=== PATIENT | male | born 1995 | race Two or more races ===

== ENCOUNTER 2023-07-03 15:05 | Emergency (ER) | payer BC ==
[~2023-07-03] VITALS: Ht 177.8 cm; Wt 76.1 kg
[2023-07-03 15:30] VITALS: PULSE 66; RESP 14; O2SAT 98
[2023-07-03] MEDS ORDERED: KETOROLAC TROMETH 60MG/2ML VIAL IM ONE (15:30)
[2023-07-03] MEDS ORDERED: KETOROLAC TROMETH 30 MG/ML 1ML VIAL IV ONE (16:00)
[2023-07-03] MEDS ORDERED: MORPHINE SULFATE 4 MG/ML SYR/VIAL IV ONE (16:45)
[2023-07-03] MEDS ORDERED: ONDANSETRON HCL 4 MG/2 ML VIAL IV ONE (16:45)
[2023-07-03] MEDS ORDERED: ZOFR4T PO ×3 (17:54→18:18)
[2023-07-03] MEDS ORDERED: HYDR-4902 PO ×3 (17:54→18:18)
[2023-07-03] MEDS ORDERED: NAPR-1334 PO ×3 (17:54→18:18)
[2023-07-03 18:30] VITALS: BP 131/79; PULSE 64; RESP 15; O2SAT 95
== END 2023-07-03 19:07 | disposition home or self-care (01) ==
LOC: ER 15:05
DX: S42.001A Fracture of unspecified part of right clavicle, initial encounter for closed fracture (principal); Z98.890 Other specified postprocedural states; V87.8XXA Person injured in other specified noncollision transport accidents involving motor vehicle (traffic), initial encounter; Y93.55 Activity, bike riding; Y92.89 Other specified places as the place of occurrence of the external cause; Y99.8 Other external cause status
CPT/HCPCS: 71046; 71250; 73030; 96374; 96375; 99285; J1885; J2270; J2405

== ENCOUNTER 2023-07-06 09:51 | Emergency (ER) | payer BC ==
[~2023-07-06] VITALS: Ht 177.8 cm; Wt 77.0 kg
[~2023-07-06 09:51] MED LIST changes: -IBU600T PO
[2023-07-06 10:30] LABS: Basophils # (auto) 0 10 ^3/uL (0-0.2); Basophils % (auto) 0.4 % (0.0-2.0); Eosinophils # (auto) 0.1 10 ^3/uL (0-0.8); Eosinophils % (auto) 1.2 % (0.0-7.0); Hematocrit 43.9 % (41.0-53.0); Hemoglobin 14.7 g/dL (13.5-17.5); Lymphocytes # (auto) 1.5 10 ^3/uL (0.4-5.4); Lymphocytes % (auto) 18.5 % (10.0-50.0); Mean Corpuscular Hemoglobin 28.9 pg (28.0-32.0); Mean Corpuscular Hgb Conc. 33.4 g/dL (32.0-36.0); Mean Corpuscular Volume 86.6 fL (80.0-100.0); Monocytes % (auto) 11.9 % (0.0-12.0); Neutrophils # (auto) 5.6 10 ^3/uL (1.6-8.6); Red Blood Cells 5.08 10^6/uL (4.5-5.90); Red Cell Distribution Width 13.2 % (11.8-14.3); White Blood Cell 8.3 10^3/uL (4.4-10.8)
[2023-07-06] MEDS: HYDROcodone-ACET 10/325MG TAB PO ONE (11:27)
[2023-07-06] MEDS ORDERED: IBU600T PO (12:05)
[2023-07-06] MEDS ORDERED: HYDR-4902 PO (12:05)
[2023-07-06 12:30] VITALS: BP 138/89; PULSE 98; RESP 19; TEMP 97.5; O2SAT 98
== END 2023-07-06 12:06 | disposition home or self-care (01) ==
LOC: ER 09:51
DX: S42.001D Fracture of unspecified part of right clavicle, subsequent encounter for fracture with routine healing (principal); X58.XXXD Exposure to other specified factors, subsequent encounter
CPT/HCPCS: 36415; 71045; 83880; 85025; 85379

== ENCOUNTER → 2023-07-06 | Outpatient (CLI) | payer BC ==
[~2023-07-06] MED LIST: HYDR-4902 PO; IBU600T PO; NAPR-1334 PO; ZOFR4T PO
[2023-07-06 12:03] LABS: Basophils # (auto) 0 10 ^3/uL (0-0.2); Basophils % (auto) 0.4 % (0.0-2.0); Eosinophils # (auto) 0 10 ^3/uL (0-0.8); Eosinophils % (auto) 0.5 % (0.0-7.0); Hematocrit 43.8 % (41.0-53.0); Hemoglobin 14.9 g/dL (13.5-17.5); Lymphocytes # (auto) 1.4 10 ^3/uL (0.4-5.4); Lymphocytes % (auto) 12.6 % (10.0-50.0); Mean Corpuscular Hemoglobin 29.1 pg (28.0-32.0); Mean Corpuscular Volume 85.5 fL (80.0-100.0); Monocytes # (auto) 1.1 10 ^3/uL (0-1.3); Monocytes % (auto) 10.7 % (0.0-12.0); Neutrophils # (auto) 8.1 10 ^3/uL (1.6-8.6); Neutrophils % (auto) 75.8 % (37.0-80.0); Red Blood Cells 5.12 10^6/uL (4.5-5.90); Red Cell Distribution Width 13.1 % (11.8-14.3); White Blood Cell 10.7 10^3/uL (4.4-10.8)
[2023-07-06 12:11] LABS: Urine Bacteria NONE SEEN /hpf (None Seen); Urine Blood Negative /uL (Negative); Urine Clarity Clear (Clear); Urine Color Yellow (Yellow); Urine Protein, UAD TRACE (Negative); Urine Specific Gravity 1.017 (1.001-1.035); Urine Urobilinogen Normal (Negative); Urine WBC <1 /hpf (0 - 3)
[2023-07-06 12:16] LABS: Alanine Aminotransferase 18 U/L (7-40); Albumin 4.7 g/dL (3.2-4.8); Alkaline Phosphatase 69 U/L (46-116); Anion Gap 4 (5-15); Aspartate Aminotransferase 22 U/L (13-40); Blood Urea Nitrogen 8 mg/dL (9-23); Calcium 10.2 mg/dL (8.5-10.1); Carbon Dioxide 31 mmol/L (20-30); Chloride 105 mmol/L (98-107); Glucose 105 mg/dL (74-106); Potassium 4.4 mmol/L (3.5-5.1); Sodium 140 mmol/L (136-145)
[2023-07-06 12:17] LABS: Total Protein 7.5 g/dL (5.7-8.2)
[2023-07-06 12:19] LABS: INR 1.16 (0.9-1.15); Partial Thromboplastin Time 27.1 SEC (24.5-34.5); Prothrombin Time 12.1 sec (9.3-11.8)
== END | disposition home or self-care (01) ==
LOC: LAB 11:39
PROVIDERS: ATTEND Orthopaedic Surgery Adult Reconstructive Orthopaedic Surgery
DX: Z01.818 Encounter for other preprocedural examination (principal)
CPT/HCPCS: 36415; 80053; 81001; 85025; 85610; 85730

== ENCOUNTER 2023-07-10 13:25 | Emergency (ER) | payer BC ==
[~2023-07-10] VITALS: Ht 177.8 cm; Wt 78.4 kg
[~2023-07-10 13:25] MED LIST changes: +IBU600T PO
[2023-07-10] MEDS: KETOROLAC TROMETH 60MG/2ML VIAL IM ONE (17:38)
[2023-07-10] MEDS ORDERED: DICL50TA2 PO (19:54)
[2023-07-10] MEDS ORDERED: CYCL-839 PO (19:54)
[2023-07-10 20:45] VITALS: BP 180/99; PULSE 59; RESP 16; TEMP 98.5; O2SAT 99
== END 2023-07-10 21:31 | disposition home or self-care (01) ==
LOC: ER 13:25
DX: G89.18 Other acute postprocedural pain (principal); M54.2 Cervicalgia; M25.511 Pain in right shoulder; M79.601 Pain in right arm; Z98.890 Other specified postprocedural states; Z79.899 Other long term (current) drug therapy
CPT/HCPCS: 72125; 96372; 99285; J1885